=== PATIENT | female | born 1975 | race Caucasian/White ===

== ENCOUNTER 2017-07-22 07:16 | Inpatient (IN) ==
[2017-07-22] MEDS ORDERED: Albuterol 2.5 MG/3 ML NEBULIZER IH ONE (07:51)
[2017-07-22] MEDS ORDERED: Albuterol 2.5 MG/3 ML NEBULIZER ONE (07:54)
[2017-07-22] MEDS ORDERED: Metoclopramide 10 MG/2 ML VIAL IVP ONE (08:04)
[2017-07-22] MEDS ORDERED: Famotidine 20 MG/2 ML VIAL IVP ONE (08:04)
[2017-07-22] MEDS ORDERED: Pregabalin 75 MG CAPSULE PO ONE (08:05)
[2017-07-22] MEDS ORDERED: Acetaminophen IV 1,000 MG/100 ML INFUS..BTL IVPB ONE (08:05)
[2017-07-22] MEDS: Ringers Solution, Lactated 1,000 ML IVC SCH (08:07)
[2017-07-22] MEDS ORDERED: *HR* LORazepam 1 MG TABLET PO PRN (08:07)
--- NOTE | 2017-07-22 08:11 | Anesthesia Evaluation PreOp ---
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") : No Test: Negative Alcohol Use: none Drug use: none Medications and Allergies Nicotine Patch [Nicoderm] 14 mg TD DAILY 07/22/17 [History] 3 Allergy/AdvReac Type Severity Reaction Status Date / Time No Known Allergies Allergy Verified 07/22/17 08:18 - Meds/Allergy Pre-op Review Medications Reviewed: Yes Allergies Reviewed: Yes Beta Blockers on Current Med List: No Anesthesia Results - Labs Laboratory Tests 06/25/17 07/14/17 07/14/17 16:34 14:13 14:13 WBC 7.8 Hgb 13.4 Hct 40.0 Plt Count 299 Sodium 140 Potassium 3.3 L Chloride 109 H Carbon Dioxide 25 BUN 6 Creatinine 0.68 Est GFR (Non-Af Amer) > 60 Glucose 93 Serum , Qual 07/14/17 14:13 WBC Hgb Hct Plt Count Sodium Potassium Chloride Carbon Dioxide BUN Creatinine Est GFR (Non-Af Amer) Glucose Serum , Qual Negative - Imaging EKG: image reviewed Anesthesia Exam O2 Sat Height 1.5 m Height 1.5 m Weight 42.184 kg Weight 42.184 kg O2 Sat by Pulse Oximetry 99 Vital Signs Temp Pulse Resp BP Pulse Ox 98.0 F 50 18 106/64 99 07/22/17 07:44 07/22/17 07:44 07/22/17 07:44 07/22/17 07:44 07/22/17 07:44 Height: 4'11" Weight: 93# BMI = 19 NPO (# of Hours): Mnoc Pain Scale Used: Numeric (1 - 10) - HEENT Pupil (Motor): Pupils equal, EOMI Mallampati: II Teeth: Missing, Poor dentition Oral Opening: Greater than 3 - WINDOWS CONSULTANT LOC: Oriented WINDOWS CONSULTANT Motor: Normal RUE, Normal LUE, Normal RLE, Normal LLE, Normal Face WINDOWS CONSULTANT Sensory: Normal: RUE, LUE, RLE, LLE, Face - Cardiac Rhythm: Regular Murmur: None - Pulmonary Breath Sounds: bilateral Clear Respiratory Effort: Symmetrical Anesthesia Assess/Plan ASA Score: 3 Modified Margareth Scale for Level of Consciousness: Cooperative, oriented, and tranquil Anesthetic Plan: General Monitoring Plan: Standard Monitors Anes Supervising Prov Stmt: Pt seen/evaluated, R&B discussed, questions answered and consent obtained. Анна Damon MD
[2017-07-22] MEDS ORDERED: *HR* Midazolam HCl 2 MG/2 ML VIAL ONE (08:16)
[2017-07-22] MEDS ORDERED: *HR* FentaNYL (PF) 100 MCG/2 ML VIAL ONE (08:16)
[2017-07-22] MEDS ORDERED: *HR* Propofol 200 MG/20 ML VIAL IVP ONE (08:17)
[2017-07-22] MEDS ORDERED: Lidocaine -MPF 2% 2 ML VIAL ONE (08:19)
[2017-07-22] MEDS ORDERED: *HR* Rocuronium Bromide 50 MG/5 ML VIAL ONE (08:19)
[2017-07-22] MEDS: Scopolamine Patch 1.5 MG PATCH.TD72 TD ONE (08:24)
[2017-07-22] MEDS ORDERED: Naloxone 0.4 MG/ML INJ IVP PRN ×2 (08:53→09:23)
[2017-07-22] MEDS ORDERED: Ondansetron 4 MG/2 ML VIAL IVP PRN (08:53)
--- NOTE | 2017-07-22 08:53 | History & Physical Report ---
Date of Encounter: 07/22/17 Time of Encounter: 08:53 24 Hour HP Update - Instructions Instructions: If the History and Physical is less than 30 days old and was completed prior to A.M. admission and or procedure and has NOT been updated on calendar day of procedure please complete this update prior to performing procedure. - Update Patient reports changes in Medical Condition: No Changes in examination, assessment, or condition: No Changes in Medication: No Preop tests/diagnostics Reviewed: Yes Surgery Remains Indicated: Yes Consent for Planned Operative Procedure(s) Verified: Yes - Pre-Operative Checklist Preoperative Checklist Indicated: Yes Prophylactic Antibiotic Ordered: Yes Home Medications Include Beta Tesfaye: No Beta Tesfaye Taken Today (Day of Surgery): No Beta Tesfaye Taken Yesterday (Day Prior to Surgery): No Is VTE Prophylaxis Indicated?: Yes
[2017-07-22] MEDS ORDERED: Ibuprofen 600 MG TABLET PO PRN (08:56)
[2017-07-22] MEDS ORDERED: Bupivacaine/PF 0.75% in Dex 2 ML AMPUL INFILT ONE (08:59)
[2017-07-22] MEDS ORDERED: Morphine Sulfate/PF 5mg/10mL Vial ONE (08:59)
[2017-07-22] MEDS ORDERED: Ringers Solution, Lactated 1,000 ML IVC SCH (09:00)
[2017-07-22] MEDS ORDERED: *HR* Succinylcholine 200 MG/10 ML VIAL IVP ONE (09:12)
[2017-07-22] MEDS ORDERED: *HR* HYDROmorphone (PF) 1 MG/ML SYRINGE IVP PRN (09:23)
[2017-07-22] MEDS ORDERED: Ibuprofen 200 MG TABLET PO PRN (09:23)
[2017-07-22] MEDS ORDERED: *HR* OxyCODONE/APAP 5/325 TABLET PO PRN (09:23)
[2017-07-22] MEDS ORDERED: Ondansetron 4 MG/2 ML VIAL ONE (09:53)
[2017-07-22] MEDS ORDERED: Dexamethasone 4 MG/ML VIAL ONE (09:53)
[2017-07-22] MEDS ORDERED: CeFAZolin Syringe 2,000MG/20 ML SYR IVPB ONE ×2 (10:08→10:17)
[2017-07-22] MEDS ORDERED: Ketorolac 30 MG/ML VIAL ONE (10:27)
[2017-07-22] MEDS ORDERED: Neostigmine Methylsulfate 3 MG/3 ML SYRINGE ONE (10:27)
[2017-07-22] MEDS ORDERED: CeFAZolin Syr 2,000MG/20 ML 2,000 MG/20 ML SYRINGE IVPB ONE (10:28)
--- NOTE | 2017-07-22 11:13 | OB/GYN Procedure Note ---
OB-MANAGER OF COMMUNITY RELATIONS: Procedure - Diagnosis Date of procedure: 07/22/17 Pre-op diagnosis: pelvic pain, fibroid uterus Post-op diagnosis: same - Procedure Procedure: ELLIOT, b/l salpingectomy Surgeon: Willow Paulino Was there an nursing assistant present: Yes Policy Writer Sales: Marlena James Anesthesia Type: General Estimated blood loss (cc): 20 Fluids: crystalloid Procedure Complications: none Specimens collected: fibroid uterus, cervix and bilateral tubes Disposition: floor Findings: fibroid uterus, normal ovaries and tubes Narrative: The patient was prepped and draped in the usual sterile fashion. An incision was made into the abdomen down through the subcutaneous tissue, muscular fascia and peritoneum. Once inside the abdominal cavity, a retractor was placed to expose the pelvic cavity. The fibroid uterus was then identified and grasped on the fundus with a double-toothed tenaculum with upward traction. The round ligaments on either side were identified and individually dissected and ligated with the Ligasure device. This allowed us to then create a bladder flap by both blunt and sharp dissection. The fallopian tube and ovarian ligament were isolated through the broad ligament from the uterine body and ligated with the Ligasure divided as well. We then skeletonized the uterine vessels on either side and carefully dissected the bladder flap anteriorly. Posteriorly, the peritoneum was dissected down toward the uterosacral ligaments. Edwin clamps were then placed at each isthmic portion of the cervical body junction where the uterine arteries adjoined the uterus. These were clamped, ligated and divided using #0 Vicryl suture. The remainder of the uterus was then removed by the [id number] technique using #0 Vicryl on all major pedicles. With removal of the uterus, the vaginal cuff was closed in the usual manner. Hemostasis was then inspected and secured throughout the entire area. The ovaries were left in situ. The lap sponges were then removed and the retractor was removed. The patient tolerated the operation nicely. There were no complications associated with this surgical procedure to this point. The sponge count was correct times 2 at this time. The Genao catheter was inspected and clear urine was noted. Having removed all instruments and packs, we then began closure of the abdomen. The fascia was closed with #0 Vicryl in a running continuous manner and the skin was closed with #4-0 vicryl. The patient tolerated the operation nicely and was then taken to the Recovery Room in good condition.
[2017-07-22] MEDS ORDERED: *HR* OxyCODONE Immed Rel 5 MG TABLET PO ONE (11:34)
[2017-07-22] MEDS: *HR* Morphine 2 MG/ML SYRINGE IVP PRN (12:03)
--- NOTE | 2017-07-22 13:07 | Anesthesia Evaluation Post Op ---
Date of Encounter: 07/22/17 Time of Encounter: 13:06 - Vital Signs Vital Signs: Last Vital Signs Temp 99.2 F 07/22/17 12:29 Pulse 70 07/22/17 12:29 Resp 16 07/22/17 12:29 BP 123/71 07/22/17 12:29 Pulse Ox 97 07/22/17 12:29 - Lungs Lungs: Clear Ascult./Percussion - Airway Airway: Non-obstructed - Cardiovascular Regular Rate - Mental Status Mental Status: Alert & Oriented, Answers Appropriately - Pain Pain Scale: 4 - Nausea Vomiting Nausea Vomiting: Not Present - Hydration Hydration: NPO - Discharge PostOp Status: Transfer Patient to floor
[2017-07-22] MEDS: *HR* OxyCODONE/APAP 5/325 TABLET PO PRN ×2 (13:20→20:00)
[2017-07-22] MEDS ORDERED: Isovue-370 500 ML INFUS..BTL IV ONE (21:55)
[2017-07-22] MEDS ORDERED: Ringers Solution, Lactated 1,000 ML ONE (22:35)
[2017-07-23] MEDS ORDERED: *HR* Propofol 200 MG/20 ML VIAL IVP ONE (00:35)
[2017-07-23 00:38] LABS: Basophils % 0.1 %; Eosinophils % 0.1 %; Immature Granulocytes % 0.6 % (0-4); Lymphocytes # 1.8 K/mcL (0.6-4.6); Lymphocytes % 12.8 %; Mean Corpuscular HGB Conc 35.7 g/dL (31.6-35.5); Mean Corpuscular Hemoglobin 30.4 pg (28.0-33.3); Mean Corpuscular Volume 85.1 fL (83.0-100.0); Mean Platelet Volume 9.8 fL (9.4-12.4); Monocytes # 1.2 K/mcL (0.0-1.3); Monocytes % 8.8 %; Neutrophils # 10.9 K/mcL (1.6-8.9); Platelet Count 277 K/mcL (140-400); Red Blood Count 3.29 M/mcL (3.82-4.97); Red Cell Distribution Width 13.2 % (11.5-14.5); Segmented Neutrophils % 77.6 %
[2017-07-23] MEDS ORDERED: *HR* Succinylcholine 200 MG/10 ML VIAL IVP ONE (00:39)
[2017-07-23] MEDS ORDERED: Lidocaine -MPF 2% 2 ML VIAL ONE (00:39)
--- NOTE | 2017-07-23 01:31 | Anesthesia Evaluation PreOp ---
Date of Encounter: 07/23/17 Time of Encounter: 01:25 - Past History Planned Operation: Exp. Laparotomy Alcohol Use: none Drug use: none Medications and Allergies Nicotine Patch [Nicoderm] 14 mg TD DAILY 07/22/17 [History] 3 Allergy/AdvReac Type Severity Reaction Status Date / Time No Known Allergies Allergy Verified 07/22/17 08:18 Anesthesia Results - Labs 07/23/17 00:25 Anesthesia Exam Vital Signs/O2 Sat, Most Current Temp Pulse Resp BP Pulse Ox 98.4 F 59 14 100/58 98 07/23/17 00:05 07/23/17 00:05 07/23/17 00:05 07/23/17 00:05 07/23/17 00:05 Anesthesia Note - Note Note: Patient underwent open yesterday morning, now has anterior abdominal wall hematoma. 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") : No Test: Negative Alcohol Use: none Drug use: none Medications and Allergies Nicotine Patch [Nicoderm] 14 mg TD DAILY 07/22/17 [History] 3 Allergy/AdvReac Type Severity Reaction Status Date / Time No Known Allergies Allergy Verified 07/22/17 08:18 - Meds/Allergy Pre-op Review Medications Reviewed: Yes Allergies Reviewed: Yes Beta Blockers on Current Med List: No Anesthesia Results - Labs Laboratory Tests 06/25/17 07/14/17 07/14/17 16:34 14:13 14:13 WBC 7.8 Hgb 13.4 Hct 40.0 Plt Count 299 Sodium 140 Potassium 3.3 L Chloride 109 H Carbon Dioxide 25 BUN 6 Creatinine 0.68 Est GFR (Non-Af Amer) > 60 Glucose 93 Serum , Qual 07/14/17 14:13 WBC Hgb Hct Plt Count Sodium Potassium Chloride Carbon Dioxide BUN Creatinine Est GFR (Non-Af Amer) Glucose Serum , Qual Negative - Imaging EKG: image reviewed Anesthesia Exam O2 Sat Height 1.5 m Height 1.5 m Weight 42.184 kg Weight 42.184 kg O2 Sat by Pulse Oximetry 99 Height: 4'11" Weight: 93# BMI = 19 NPO (# of Hours): Clears until 1600 - HEENT Pupil (Motor): Pupils equal, EOMI Mallampati: II Teeth: Missing, Poor dentition Oral Opening: Greater than 3 - Cardiac Rhythm: Regular Murmur: None - Pulmonary Breath Sounds: bilateral Clear Respiratory Effort: Symmetrical Anesthesia Assess/Plan ASA Score: 3E Modified Margareth Scale for Level of Consciousness: Cooperative, oriented, and tranquil Anesthetic Plan: General Monitoring Plan: Standard Monitors Anes Supervising Prov Stmt: Patient informed and consented. Risks, benefits, and alternatives discussed. Possible blood transfusion. Patient wishes to proceed.
[2017-07-23] MEDS ORDERED: *HR* FentaNYL (PF) 100 MCG/2 ML VIAL ONE (01:40)
[2017-07-23] MEDS ORDERED: *HR* PHENYLEPHRINE 1,000 MCG/10 ML SYRINGE IVP ONE (01:54)
[2017-07-23] MEDS ORDERED: *HR* Morphine 10 MG/ML VIAL ONE (02:04)
[2017-07-23] MEDS ORDERED: Ketorolac 15 MG/ML VIAL IVP ONE (02:48)
[2017-07-23] MEDS ORDERED: Acetaminophen IV 1,000 MG/100 ML INFUS..BTL IVPB ONE (02:48)
[2017-07-23] MEDS ORDERED: MORPHINE SUL Oral CONC 10 MG/0.5 ML ORAL.SYG SL PRN (02:48)
--- NOTE | 2017-07-23 02:56 | Anesthesia Evaluation Post Op ---
Date of Encounter: 07/23/17 Time of Encounter: 03:45 - Hydration Hydration: NPO Notes: Patient's vital signs have been reviewed. Patient is stable postoperatively and has adequately recovered from anesthesia. Patient is determined to have stable airway patency and respiratory function including respiratory rate and oxygen saturation. Patient has a stable heart rate, blood pressure and adequate hydration. Patients mental status is acceptable. Patients temperature is appropriate. Pain and nausea are adequately controlled. - Discharge PostOp Status: Transfer Patient to floor
--- NOTE | 2017-07-23 03:18 | OB/GYN Procedure Note ---
OB-DEPUTY DIRECTOR OF FINANCE: Procedure - Diagnosis Date of procedure: 07/23/17 Pre-op diagnosis: abdominal pain, ant abd wall hematoma Post-op diagnosis: same - Procedure Procedure: ex Lap, evacuation of hematoma Surgeon: Willow Paulino Was there an employment legal assistant present: Yes Wheel Tuner: Greg Vega Anesthesia Type: General Estimated blood loss (cc): 150 Fluids: crystalloid Procedure Complications: none Specimens collected: none Disposition: floor Findings: large clots extracted from the subcutaneous tissue, bleeding superior epigastric vessel, bleeding noted from the left edge of the vaginal cuff Narrative: The patient was prepped with Betadine and draped in the usual sterile fashion. An incision was made into the abdomen down through the subcutaneous tissue and muscular fascia. When the skin incision was made, I noted a large amount of clots in the subcutaneous layer which was extracted. The hematoma was located on the right side and after the clots were evacuated, we noted a bleeding vessel which seemed to be the superior epigastric vessel or one of its branches on the right. We coagulated the vessel and hemostasis was assured. We continued through the fascia and once inside the abdominal cavity, a self retaining retractor was placed to expose the pelvic cavity with 3 lap sponges. We noted minimal blood in the pelvis and examined the vaginal cuff. We irrigated the pelvis and when we observed the cuff, we noted a bleeding point on the left corner of the cuff. We suctioned out the fluid and reinforced the vaginal cuff with multiple figure of eight stitches with 0-vicryl. Hemostasis was assured. We applied Mary to the cuff. The retractor was then removed, the laps were removed and counted. We closed the fascia with 0-vicryl, the subcutaneous layer with 3-0 vicryl and the skin with 4-0 vicryl. The patient tolerated the procedure well and was taken to the recovery room in stable condition.
--- NOTE | 2017-07-23 03:32 | Event Note ---
Date of Encounter: 07/22/17 Time of Encounter: 23:45 I was called in with reports that the patient was having bruising around her incision and abd pain. Her vitals were stable. She had just removed her catheter an hr before with good urine output. She went to the bathroom and saw the bruising and called in the nurse. I did a CT scan on her and the result showed a 15cm hematoma on the anterior abdominal wall. I spoke to the patient about the need for surgery to extract the clot and ligate the bleeding vessel. She agreed. Consent signed. Pls see op note.
[2017-07-23] MEDS ORDERED: Ringers Solution, Lactated 1,000 ML ONE (04:42)
[2017-07-23] MEDS: Ringers Solution, Lactated 1,000 ML IVC SCH (04:44)
[2017-07-23] MEDS: *HR* Morphine 2 MG/ML SYRINGE IVP PRN (06:13)
[2017-07-23 06:31] LABS: Hematocrit 26.1 % (35.3-44.9); Hemoglobin 9.2 g/dL (11.5-15.4); Mean Corpuscular HGB Conc 35.2 g/dL (31.6-35.5); Mean Corpuscular Hemoglobin 30.7 pg (28.0-33.3); Mean Platelet Volume 10.1 fL (9.4-12.4); Platelet Count 246 K/mcL (140-400); Red Cell Distribution Width 13.3 % (11.5-14.5)
--- NOTE | 2017-07-23 07:32 | OB/GYN Progress Note ---
Date of Encounter: 07/23/17 Time of Encounter: 07:28 - Assessment and Plan (1) Status post hysterectomy Current Visit: Yes Status: Acute s/p hysterectomy, ex lap, evacuation of hematoma, POD#1 patient doing well, bowels sounds are hypoactive, hold off on advancing diet until I see her at noon , pain is under control, cont current inpt plan, patient wants to go home today, I told her that we will re-evaluate her status this evening. Subjective - Subjective Patient reports: pain well controlled (patient doing well, awake and watching TV , has some neck pain otherwise her pain is under control, sipping on ice chips) Objective - Vital Signs Latest vital signs: Vital Signs Temp Pulse Pulse Resp BP Pulse Ox 07/23/17 07:00 98.2 F 58 14 94/55 98 07/23/17 06:00 97.7 F 60 14 101/55 99 07/23/17 05:00 98.3 F 60 14 115/80 98 07/23/17 04:30 98.1 F 60 14 111/52 98 07/23/17 04:00 98.4 F 65 65 14 121/76 99 07/23/17 03:52 97.8 F 73 14 122/70 98 07/23/17 03:42 67 14 123/82 99 07/23/17 03:32 68 14 132/76 97 07/23/17 03:22 98.7 F 68 14 137/76 99 07/23/17 00:05 98.4 F 59 14 100/58 98 07/22/17 22:05 98.6 F 54 16 109/64 99 07/22/17 20:10 97.7 F 52 14 95/54 98 07/22/17 15:45 98.7 F 72 72 14 91/55 98 07/22/17 14:48 98.1 F 59 16 89/53 07/22/17 13:15 70 70 14 107/68 99 07/22/17 12:29 99.2 F 70 16 123/71 97 07/22/17 12:17 67 16 109/63 99 07/22/17 12:07 57 16 121/77 99 07/22/17 11:57 60 18 126/70 99 07/22/17 11:47 61 16 129/78 98 07/22/17 11:37 98.2 F 83 12 125/74 95 07/22/17 11:27 59 19 135/76 96 07/22/17 11:17 58 16 133/78 96 07/22/17 11:07 99.3 F 78 16 130/87 98 07/22/17 08:10 18 106/64 99 07/22/17 07:44 98.0 F 50 18 106/64 99 Intake and Output 07/22/17 07/22/17 07/23/17 15:59 23:59 07:59 Intake Total 1200 / 1200 100 / 100 Output Total 45 / 45 450 / 450 950 / 950 Balance -45 / -45 750 / 750 -850 / -850 Intake: IV Fluids 1000 / 1000 100 / 100 Ofirmev 1,000 mg/100 ml 1,000 100 / 100 mg In 100 ml @ 400 mls/hr IVPB ONCE ONE Rx#:[id number] Oral 200 / 200 Output: Estimated Blood Loss 20 / 20 150 / 150 Urine Amount (Catheter) 25 / 25 Catheter 450 / 450 800 / 800 Other: Weight 42.184 kg 43.681 kg Patient Weight 07/23/17 23:59 Weight 43.681 kg - I&O's I&O's: Intake & Output 07/20/17 07/21/17 07/22/17 07/23/17 23:59 23:59 23:59 23:59 Intake Total 1200 / 1200 100 / 100 Output Total 495 / 495 950 / 950 Balance 705 / 705 -850 / -850 Weight 42.184 kg 43.681 kg - Exam Lungs: bilateral: normal Chest: Normal S1, Normal S2 Extremities: Present: normal Abdomen: Present: soft Incision OB: Present: dry, dressed - Labs Labs: Abnormal lab results RBC 3.00 M/mcL (3.82-4.97) L 07/23/17 06:00 Hgb 9.2 g/dL (11.5-15.4) L 07/23/17 06:00 Hct 26.1 % (35.3-44.9) L 07/23/17 06:00 Neutrophils # 10.9 K/mcL (1.6-8.9) H 07/23/17 00:25 Consult Discharge Plan - Plan Instructions: Abdominal Hysterectomy (DC) Referrals: Willow Paulino MD [Partnered Physician] - 08/07/17 2:00 pm NONE,PCP [Primary Care Provider] -
[2017-07-23] MEDS: *HR* OxyCODONE/APAP 5/325 TABLET PO PRN ×2 (07:45→13:22)
[2017-07-23 15:51] VITALS: BP 95/59
--- NOTE | 2017-07-23 17:09 | Discharge Summary ---
Date of Encounter: 07/23/17 Time of Encounter: 17:09 - Discharge Diagnosis (1) Status post hysterectomy Priority: Primary Status: Acute Comments: patient states she wants to go home, she has already gone out to smoke, she has had lunch and tolerated it, she has good urine output, ok for discharge - Discharge Medications Home Medications: Nicotine Patch [Nicoderm] 14 mg TD DAILY 07/22/17 [History] Allergies/Adverse Reactions: 3 Allergy/AdvReac Type Severity Reaction Status Date / Time No Known Allergies Allergy Verified 07/22/17 08:18 Data Procedures and tests throughout hospitalization: Laboratory Tests 07/22/17 07/23/17 07/23/17 07:43 00:25 06:00 WBC 14.0 H 10.9 RBC 3.29 L 3.00 L Hgb 10.0 L 9.2 L Hct 28.0 L 26.1 L MCV 85.1 87.0 MCH 30.4 30.7 MCHC 35.7 H 35.2 RDW 13.2 13.3 Plt Count 277 246 MPV 9.8 10.1 Immature Gran % 0.6 Seg Neutrophils % 77.6 Lymphocytes % 12.8 Monocytes % 8.8 Eosinophils % 0.1 Basophils % 0.1 Neutrophils # 10.9 H Lymphocytes # 1.8 Monocytes # 1.2 Eosinophils # 0.0 Basophils # 0.0 POC Urine HCG, Qual Negative Labs on day of discharge: Labs from last 24 hours 07/23/17 07/23/17 06:00 00:25 WBC 10.9 14.0 H RBC 3.00 L 3.29 L Hgb 9.2 L 10.0 L Hct 26.1 L 28.0 L MCV 87.0 85.1 MCH 30.7 30.4 MCHC 35.2 35.7 H RDW 13.3 13.2 Plt Count 246 277 MPV 10.1 9.8 Immature Gran % 0.6 Seg Neutrophils % 77.6 Lymphocytes % 12.8 Monocytes % 8.8 Eosinophils % 0.1 Basophils % 0.1 Neutrophils # 10.9 H Lymphocytes # 1.8 Monocytes # 1.2 Eosinophils # 0.0 Basophils # 0.0 - Impressions ITS Impressions Abdomen/Pelvis CT 07/22/17 22:00 IMPRESSION: 1. Large hematoma in the anterior abdominal wall inferiorly. 2. Free fluid in the pelvis is of increased attenuation and probably represents hemoperitoneum. The more linear areas of high attenuation could represent hemorrhage or surgical material. D/ / Sharan Johnson MD / Sharan Johnson MD Interpreting Provider: Sharan Johnson MD Date of admission: 07/22/17 12:52 Primary care physician: PCP NONE - Patient Status Disposition: Home, Self-Care Condition: Good Functional capacity at discharge: independent ambulation Overall status at discharge: patient is progressing back to baseline - Discharge Instructions Instructions: Abdominal Hysterectomy (DC) Follow Up With: Willow Paulino MD [Partnered Physician] - 08/07/17 2:00 pm NONE,PCP [Primary Care Provider] - Hospital Course ATTRACTIONS ASSOCIATE Time Attestation: Total time spent providing and/or coordinating discharge services: Exam - Constitutional Vitals: Temp Pulse Resp BP Pulse Ox 97.6 F 56 16 95/59 97 07/23/17 15:50 07/23/17 15:50 07/23/17 15:50 07/23/17 15:50 07/23/17 07:56 General appearance IM: A&O X 3 - Respiratory Respiratory exam: Present: CTAB - Cardiovascular Cardiovascular exam IM: Present: RRR - GI/Abdominal GI/Abdominal exam IM: normal bowel sounds Incision: normal, dry, dressed - External exam: normal external exam - VTE Documentation of Mechanical Device: Intermittent pneumatic compression device
== END 2017-07-23 17:41 | disposition home or self-care (01) | DRG 519 ==
LOC: SAMDAY 07:16 → 1NENUOBS 12:52
PROVIDERS: ADMIT Student in an Organized Health Care Education/Training Program; ATTEND Student in an Organized Health Care Education/Training Program